=== PATIENT | male | born 1990 | race Two or more races ===

== ENCOUNTER 2017-02-06 03:19 | Emergency (ER) | payer MEDICAID, OTHER ==
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
[2017-02-06 04:05] VITALS: BP 144/106; PULSE 101; RESP 18; TEMP 97.9; O2SAT 98
== END 2017-02-06 04:22 | disposition home or self-care (01) ==
LOC: EDUNIT#
DX: S60.512A Abrasion of left hand, initial encounter (principal); J45.909 Unspecified asthma, uncomplicated; Z87.891 Personal history of nicotine dependence; V89.2XXA Person injured in unspecified motor-vehicle accident, traffic, initial encounter; Y92.410 Unspecified street and highway as the place of occurrence of the external cause; Y99.8 Other external cause status; Y93.89 Activity, other specified